=== PATIENT | male | born 1995 | race Hispanic/Latino ===

== ENCOUNTER 2017-12-16 21:34 | Emergency (ER) | payer SELFPAY ==
[~2017-12-16] VITALS: Ht 172.7 cm; Wt 83.9 kg
[2017-12-16 21:45] VITALS: BP 145/77
[2017-12-16 22:07] LABS: ABSOLUTE BASOPHIL COUNT 0 /CUMM (0.0-0.2); ABSOLUTE EOSINOPHIL COUNT 0.4 /CUMM (0.0-0.7); ABSOLUTE GRANULOCYTE CT 5.2 /CUMM (1.4-6.5); ABSOLUTE MONOCYTE COUNT 0.7 /CUMM (0.10-0.60); BASOPHIL % 0.3 % (0.0-2.0); EOSINOPHIL % 3.8 % (0-5); MEAN CORPUSCULAR HGB 30.2 PG (27.0-31.0); MEAN CORPUSCULAR HGB CONC 33.7 G/DL (33.0-37.0); MEAN CORPUSCULAR VOLUME 89.7 FL (80.0-94.0); MEAN PLATELET VOLUME 7.8 FL (7.4-10.4); PLATELET COUNT 225 /CUMM (130-400); RBC DISTRIBUTION WIDTH 13.2 % (11.5-14.5); RED BLOOD CELL CT 4.56 /CUMM (4.70-6.10); WHITE BLOOD CELL COUNT 9.3 /CUMM (4.8-10.8)
--- NOTE | 2017-12-17 00:08 | ED GI/GU/ABDOMINAL COMPLAINT ---
History of Present Illness General Chief Complaint: General Adult Stated Complaint: NAUSEA, DIZZY, "HEART RACING" ABD PAIN Source: patient, family Exam Limitations: no limitations Vital Signs & Intake/Output Vital Signs & Intake/Output Vital Signs Date Time Temp Pulse Resp B/P B/P Pulse O2 O2 Flow FiO2 Mean Ox Delivery Rate 12/16 2145 97.2 84 16 145/77 99 Room Air ED Intake and Output 12/17 0000 12/16 1200 Intake Total Output Total Balance Patient 185 lb Weight Weight Reported by Patient Measurement Method Allergies Coded Allergies: NO KNOWN ALLERGIES (02/25/14) Reconcile Medications No Known Home Medications Triage Note: PT STATES THAT HE FEELS NAUSEOUS, DIZZY STOMACH FEELS BLOATED. HEART IS RACING, PT IS BURPING NON STOP. PT DENIES CHEST PAIN BUT STATES THAT HE HAS PAIN TO THE UPPER GASTRIC AREA. PT STATES THAT THE PAIN IS 7/10. PT DENIES DIFF BREATHING.. PT DENIES DRUG/ALCOHOL USE. PT STATES THAT EARLIER IN THE DAY THAT HE FELT HIS HEART BEATING HARD AND FAST. Triage Nurses Notes Reviewed? yes HPI: Patient states that at 9:30 this evening his abdomen certainly become bloated and he felt nauseous. The bloating sensation radiated into the epigastric area. Patient states that he felt dizzy and short of breath. Patient states that his abdomen just feels discomfort. The discomfort is diffuse however it is improving. At its worst was 8 out of 10 and is currently a 4 out of 10. Patient denies any nausea or vomiting. There is no constipation or diarrhea. There are no fevers or chills. Past History Travel History Traveled to [place] past 21 day No Medical History Any Pertinent Medical History? none Surgical History Surgical History: non-contributory Psychosocial History What is your primary language [place]er Tobacco Use: Never used ETOH Use: occasional use Illicit Drug Use: denies illicit drug use Family History Family History, If Any: Relation not specified for: FH: diabetes mellitus Hx Contributory? No Review of Systems Review of Systems Constitutional: Reports: no symptoms. EENTM: Reports: no symptoms. Respiratory: Reports: no symptoms. Cardiovascular: Reports: no symptoms. GI: Reports: see HPI, abdominal pain, bloating. Genitourinary: Reports: no symptoms. Musculoskeletal: Reports: no symptoms. Skin: Reports: no symptoms. Neurological/Psychological: Reports: no symptoms. Hematologic/Endocrine: Reports: no symptoms. Immunologic/Allergic: Reports: no symptoms. All Other Systems: Reviewed and Negative Physical Exam Physical Exam General Appearance: well developed/nourished, alert, awake, mild distress Head: atraumatic, normal appearance Eyes: Bilateral: PERRL, EOMI. Ears, Nose, Throat, Mouth: hearing grossly normal, moist mucous membrane Neck: normal inspection, supple, full range of motion Respiratory: normal breath sounds, chest non-tender, no respiratory distress, lungs clear Cardiovascular: regular rate/rhythm, normal peripheral pulses Gastrointestinal: normal bowel sounds, soft, no organomegaly, tenderness (RLQ), NO GUARDING OR REBOUND Back: normal inspection, normal range of motion Extremities: normal range of motion Neurologic/Psych: no motor/sensory deficits, awake, alert, oriented x 3, normal mood/affect Core Measures ACS in differential dx? No Sepsis Present: No Sepsis Focused Exam Completed? No Progress Differential Diagnosis: appendicitis, cholecystitis, diverticulitis, gastritis, hepatitis, ischemic bowel, inflamm bowel dis, UTI/pyelo Plan of Care: Orders Procedure Date/time Status THYROID STIMULATING HORMONE 12/17 2151 Complete TROPONIN LEVEL 12/17 2151 Complete LIPASE 12/17 2151 Complete LACTIC ACID 12/17 2151 Complete FREE T4 12/17 2151 Complete COMPREHENSIVE METABOLIC PANEL 12/17 2151 Complete CBC WITHOUT DIFFERENTIAL 12/17 2151 Complete AMYLASE 12/17 2151 Complete EKG 12/16 2145 Active Laboratory Tests 12/17/17 0052: Lactic Acid Cancelled 12/16/179: Anion Gap 12, Estimated GFR > 60, BUN/Creatinine Ratio 16.0, Glucose 116 H, Lactic Acid 1.5, Calcium 9.2, Total Bilirubin 0.7, AST 36, ALT 37, Alkaline Phosphatase 73, Troponin I < 0.01, Total Protein 7.1, Albumin 4.3, Globulin 2.8, Albumin/Globulin Ratio 1.5, Amylase 70, Lipase 29, TSH 2.140, Free T4 0.87, CBC w Diff NO MAN DIFF REQ, RBC 4.56 L, MCV 89.7, MCH 30.2, MCHC 33.7, RDW 13.2, MPV 7.8, Gran % 56.0, Lymphocytes % 32.3, Monocytes % 7.6, Eosinophils % 3.8, Basophils % 0.3, Absolute Granulocytes 5.2, Absolute Lymphocytes 3.0, Absolute Monocytes 0.7 H, Absolute Eosinophils 0.4, Absolute Basophils 0 Diagnostic Imaging: Viewed by Me: CT Scan. Discussed w/RAD: CT Scan. Radiology Impression: PATIENT: KIRT MCBRIDE V PRESENT AGE: 22 PATIENT ACCOUNT NO: [id number] : 96 LOCATION: [facility] ORDERING PHYSICIAN: Chris Francis MD SERVICE DATE: 12/17/17 EXAM TYPE: CAT - CT ABD & PELVIS W IV CONTRAST EXAMINATION: CT ABDOMEN AND PELVIS WITH CONTRAST CLINICAL INFORMATION: Right lower quadrant pain COMPARISON: None TECHNIQUE: Multidetector volumetric imaging was performed of the abdomen and pelvis following IV administration of 95 mL of Optiray 320 intravenous contrast. Sagittal and coronal reformatted images were obtained on the technologist's workstation. DLP: 303.66 mGy-cm FINDINGS: LUNG BASES: There is a 2 mm left lower lobe nodule on image /, statistically likely benign in the absence of additional clinical risk factors. LIVER, GALLBLADDER, AND BILIARY TREE: The liver is normal in size, shape, and attenuation. No focal hepatic lesion or biliary ductal dilatation is present. The gallbladder is unremarkable. PANCREAS: Unremarkable. SPLEEN: Unremarkable. ADRENAL GLANDS: Unremarkable. KIDNEYS AND URETERS: The kidneys are normal in size, shape, and attenuation. No hydronephrosis, hydroureter, or calculi seen. No perinephric stranding. BLADDER: Unremarkable. GASTROINTESTINAL TRACT: The small and large bowel are unremarkable. The appendix is unremarkable. No free fluid or free air is seen. ABDOMINAL WALL: No significant hernia is appreciated. LYMPH NODES: Normal. VASCULAR: Unremarkable. PELVIC VISCERA: Unremarkable. OSSEOUS STRUCTURES: Unremarkable. IMPRESSION: No acute findings identified in the abdomen/pelvis. Normal appendix. DICTATED BY: Parish Ding MD DATE/TIME DICTATED:12/17/17108 [employer]IST[employer] SUPERVISOR:VIJAY DATE/TIME TRANSCRIBED:12/17/17108 CONFIDENTIAL, DO NOT COPY WITHOUT APPROPRIATE AUTHORIZATION. <Electronically signed in Other Vendor System> SIGNED BY: Parish Ding MD 12/17/17 0118 Initial ED EKG: none Departure Departure Disposition: HOME OR SELF CARE Condition: Stable Clinical Impression Primary Impression: Abdominal pain, unspecified site Referrals: Annabelle Kimble APRN (PCP/Family) Additional Instructions: RETURN IF SYMPTOMS WORSEN OR FOR ANY CONCERNS Departure Forms: Customer Survey General Discharge Information Prescriptions: Current Visit Scripts No Known Home Medications
--- NOTE | 2017-12-17 01:18 | CT SCAN REPORT ---
EXAMINATION: CT ABDOMEN AND PELVIS WITH CONTRAST CLINICAL INFORMATION: Right lower quadrant pain COMPARISON: None TECHNIQUE: Multidetector volumetric imaging was performed of the abdomen and pelvis following IV administration of 95 mL of Optiray 320 intravenous contrast. Sagittal and coronal reformatted images were obtained on the technologist's workstation. DLP: 303.66 mGy-cm FINDINGS: LUNG BASES: There is a 2 mm left lower lobe nodule on image 6/93, statistically likely benign in the absence of additional clinical risk factors. LIVER, GALLBLADDER, AND BILIARY TREE: The liver is normal in size, shape, and attenuation. No focal hepatic lesion or biliary ductal dilatation is present. The gallbladder is unremarkable. PANCREAS: Unremarkable. SPLEEN: Unremarkable. ADRENAL GLANDS: Unremarkable. KIDNEYS AND URETERS: The kidneys are normal in size, shape, and attenuation. No hydronephrosis, hydroureter, or calculi seen. No perinephric stranding. BLADDER: Unremarkable. GASTROINTESTINAL TRACT: The small and large bowel are unremarkable. The appendix is unremarkable. No free fluid or free air is seen. ABDOMINAL WALL: No significant hernia is appreciated. LYMPH NODES: Normal. VASCULAR: Unremarkable. PELVIC VISCERA: Unremarkable. OSSEOUS STRUCTURES: Unremarkable. IMPRESSION: No acute findings identified in the abdomen/pelvis. Normal appendix.
== END 2017-12-17 02:05 ==
LOC: ERH 21:34
PROVIDERS: Physician Assistant
DX: R10.13 Epigastric pain (principal)
CPT/HCPCS: 74177; 93005; 93010; 96360